=== PATIENT | female | born 1930 | race Caucasian/White ===

== ENCOUNTER 2018-07-28 11:11 | Outpatient (CLI) | payer OTHER ==
[~2018-07-28 11:11] MED LIST: ATACAND4 MG PO; METFORMIN HYDRO25 GM MC; NEURIN SL; TOPROL XL25 M1 PO
== END 2018-07-28 12:59 | disposition home or self-care (01) ==
LOC: RAD 501 11:11
DX: M25.561 Pain in right knee (principal)

== ENCOUNTER 2018-12-13 14:10 | Outpatient (CLI) | payer OTHER | END 2018-12-13 14:19 | disposition home or self-care (01) | LOC: TOM 14:10 | DX: S09.8XXA Other specified injuries of head, initial encounter (principal); R41.2 Retrograde amnesia; R51 Headache ==

== ENCOUNTER 2019-10-30 11:34 | Emergency (ER) | payer OTHER ==
[~2019-10-30] VITALS: Ht 149.9 cm; Wt 56.7 kg
[2019-10-30] MEDS ORDERED: LEXAPRO5 MG (11:45)
[2019-10-30] MEDS ORDERED: LIPITOR20 MG (11:45)
== END 2019-10-30 19:43 | disposition home or self-care (01) ==
LOC: ER 11:34
DX: M54.2 Cervicalgia (principal); R11.11 Vomiting without nausea; R51 Headache

== ENCOUNTER 2020-01-12 10:06 | Outpatient (CLI) | payer OTHER ==
[~2020-01-12 10:06] MED LIST changes: +LEXAPRO5 MG; +LIPITOR20 MG
== END 2020-01-12 11:47 | disposition home or self-care (01) ==
LOC: TOM 10:06
DX: D64.89 Other specified anemias (principal); K90.89 Other intestinal malabsorption

== ENCOUNTER → 2020-10-09 13:28 | Outpatient (CLI) | payer OTHER | END | disposition home or self-care (01) | LOC: EKG 13:28 → LAB 13:28 | PROVIDERS: ATTEND Internal Medicine Cardiovascular Disease | DX: I10 Essential (primary) hypertension (principal) ==

== ENCOUNTER 2021-06-04 22:44 | Emergency (ER) | payer OTHER ==
[~2021-06-04] VITALS: Ht 154.9 cm; Wt 58.1 kg
[2021-06-04] MEDS ORDERED: NORVASC2.5 M1 (23:26)
[2021-06-04] MEDS ORDERED: PEPCID AC20 MG (23:26)
== END 2021-06-05 04:56 | disposition home or self-care (01) ==
LOC: ER 22:44
DX: G44.89 Other headache syndrome (principal)